=== PATIENT | female | born 1995 | race Caucasian/White ===

== ENCOUNTER 2019-10-21 19:38 | Emergency (ER) | payer MEDICAID ==
[~2019-10-21] VITALS: Ht 165.1 cm; Wt 61.0 kg
[2019-10-21] MEDS ORDERED: SODIUM CHLORIDE 0.9% 1,000 ML IV ONE ×2 (20:16→23:00)
[2019-10-21] MEDS ORDERED: LORAZEPAM 1MG TABLET PO ONE ×2 (20:30→23:00)
[2019-10-21 20:58] LABS: CHLORIDE 105 mEq/L (98-107)
[2019-10-21 21:08] LABS: HCG SCREEN NEGATIVE
[2019-10-21] MEDS ORDERED: IBUPROFEN 400MG TABLET PO ONE (23:00)
[2019-10-21] MEDS ORDERED: ACETAMINOPHEN 325MG TABLET PO ONE (23:00)
[2019-10-22 00:23] VITALS: BP 109/69
== END 2019-10-22 00:27 | disposition home or self-care (01) ==
LOC: ER 19:38
DX: F41.9 Anxiety disorder, unspecified (principal); R07.89 Other chest pain; R06.02 Shortness of breath; R11.0 Nausea; J45.909 Unspecified asthma, uncomplicated; Z87.01 Personal history of pneumonia (recurrent)
CPT/HCPCS: 36415; 71045; 80053; 84703; 85379; 93005; 96360; 99285; J7030

== ENCOUNTER 2020-07-21 23:59 | Inpatient (IN) | payer MEDICAID ==
[~2020-07-21] VITALS: Ht 165.1 cm; Wt 58.1 kg
[2020-07-22] MEDS ORDERED: METHYLPREDNISOLONE SOD SUCC 125 MG/2 ML VIAL IV STA (00:48)
[2020-07-22] MEDS ORDERED: ALBUTEROL (0.083%) 2.5MG/3ML NEB HHN STA ×2 (00:48→03:00)
[2020-07-22 01:20] LABS: BASOPHILS % 0.3 % (0.0-2.0); EOSINOPHILS % 1.1 % (0.0-5.0); HEMATOCRIT. 30.8 % (36.0-48.0); HEMOGLOBIN. 10.5 g/dL (12.0-16.0); LYMPHOCYTES % 11.3 % (20.0-50.0); MEAN CORPUSCULAR HEMOGLOBIN 29.7 pg (28.0-32.0); MEAN CORPUSCULAR VOLUME 87.1 fL (81.0-99.0); MEAN PLATELET VOLUME 8.1 fl (7.4-10.4); MONOCYTES % 4.5 % (2.0-8.0); NEUTROPHILS % 82.8 % (40.0-76.0); PLATELET 223 x1000/uL (130-400); RED BLOOD CELL COUNT 3.53 mill/uL (4.2-5.4); RED CELL DISTRIBUTION WIDTH 14.9 % (11.6-14.6)
[2020-07-22 01:28] LABS: CHLORIDE 110 mEq/L (98-107)
[2020-07-22 01:31] LABS: INR 0.9; PARTIAL THROMBOPLASTIN TIME 25.2 sec (23.4-31.0); PROTHROMBIN TIME 10.1 sec (9.6-11.0)
[2020-07-22 01:54] LABS: B-HCG QUANTITATIVE 7008 mIU/mL (<3)
[2020-07-22] MEDS ORDERED: POTASSIUM CHLORIDE 20MEQ TABLET SR PO ONE (02:15)
[2020-07-22 04:38] LABS: CLARITY URINE CLEAR (CLEAR); COLOR URINE YELLOW (YELLOW); KETONES URINE TRACE (NEGATIVE); LEUKOCYTE ESTERASE URINE TRACE (NEGATIVE); NITRITE URINE NEGATIVE (NEGATIVE); OCCULT BLOOD URINE NEGATIVE (NEGATIVE); PROTEIN URINE NEGATIVE (NEGATIVE); SPECIFIC GRAVITY URINE 1.016 (1.005-1.030)
[2020-07-22 05:03] LABS: D-DIMER 0.64 mg/L FEU (<0.50); INR 0.9; PARTIAL THROMBOPLASTIN TIME 25.6 sec (23.4-31.0); PROTHROMBIN TIME 10.2 sec (9.6-11.0)
[2020-07-22] MEDS ORDERED: CEFTRIAXONE 1 G PREMIX 50 ML IV ONE (05:45)
[2020-07-22] MEDS ORDERED: IOHEXOL-350 100 ML BOTTLE ONE (06:53)
[2020-07-22 08:00] VITALS: BP 126/80
[2020-07-22] MEDS ORDERED: SODIUM CHLORIDE 0.9% 1000ML BAG (SEPSIS BOLUS) IV ONE (08:00)
[2020-07-22 08:30] VITALS: BP 126/80
[2020-07-22] MEDS: FERROUS SULFATE 325MG TABLET PO SCH ×2 (10:08→18:59)
[2020-07-22] MEDS: ACETAMINOPHEN 325MG TABLET PO PRN ×2 (10:09→11:16)
[2020-07-22] MEDS: PRENATAL VIT/FE FUMARATE/FA TABLET PO SCH (11:10)
[2020-07-22] MEDS ORDERED: FERR325T23 PO (11:18)
[2020-07-22] MEDS ORDERED: PNV1TABL76 PO (11:19)
[2020-07-22] MEDS ORDERED: ALBU6.7H9 INH (11:20)
[2020-07-22 12:00] VITALS: BP 102/50
[2020-07-22] MEDS: IPRATROPIUM/ALBUTEROL 0.5-3(2.5)MG/3ML NEB HHN SCH ×2 (13:04→21:32)
[2020-07-22 16:00] VITALS: BP 101/50
[2020-07-22] MEDS: METHYLPREDNISOLONE SOD SUCC 125 MG/2 ML VIAL IV SCH (18:59)
[2020-07-22 20:00] VITALS: BP 96/57
[2020-07-22 23:49] VITALS: BP 101/62
[2020-07-23] MEDS: METHYLPREDNISOLONE SOD SUCC 125 MG/2 ML VIAL IV SCH ×2 (02:30→10:21)
[2020-07-23] MEDS: IPRATROPIUM/ALBUTEROL 0.5-3(2.5)MG/3ML NEB HHN SCH ×3 (03:04→13:47)
[2020-07-23 08:00] VITALS: BP 105/58
[2020-07-23] MEDS: PRENATAL VIT/FE FUMARATE/FA TABLET PO SCH (10:22)
[2020-07-23] MEDS: FERROUS SULFATE 325MG TABLET PO SCH (10:22)
[2020-07-23 12:00] VITALS: BP 104/61
[2020-07-23 16:00] VITALS: BP 120/67
[2020-07-23 16:03] VITALS: BP 120/67
== END 2020-07-23 19:00 | disposition home or self-care (01) | DRG 566 ==
LOC: ER 23:59 → 6WST 07-22 06:05 → ENRESERV 07-22 07:21
PROVIDERS: ADMIT Internal Medicine; ATTEND Internal Medicine
DX: O99.512 Diseases of the respiratory system complicating pregnancy, second trimester (principal); J96.01 Acute respiratory failure with hypoxia; R65.20 Severe sepsis without septic shock; O98.812 Other maternal infectious and parasitic diseases complicating pregnancy, second trimester; A41.9 Sepsis, unspecified organism; D64.9 Anemia, unspecified; J45.909 Unspecified asthma, uncomplicated; O99.012 Anemia complicating pregnancy, second trimester; Z3A.20 20 weeks gestation of pregnancy; Z87.01 Personal history of pneumonia (recurrent)
CPT/HCPCS: 36415; 71045; 71275; 76805; 80053; 81003; 83605; 84484; 84702; 85025; 85379; 87430; 93005; 93970; 94640; 99291; J0696; J2930; J7030; Q9967

== ENCOUNTER 2021-04-24 01:18 | Emergency (ER) | payer MEDICAID, OTHER ==
[~2021-04-24] VITALS: Ht 165.1 cm; Wt 59.0 kg
[~2021-04-24 01:18] MED LIST: ALBU6.7H9 INH; FERR325T23 PO; PNV1TABL76 PO
[2021-04-24 01:52] VITALS: BP 123/79
[2021-04-24] MEDS ORDERED: TETANUS, DIPHTHERIA, PERTUSSIS VAC/PF 0.5ML (>10YR OLD) IM ONE (02:15)
[2021-04-24] MEDS ORDERED: CEPH500C2 MT (03:51)
== END 2021-04-24 04:18 | disposition home or self-care (01) ==
LOC: ER 01:18
DX: S60.551A Superficial foreign body of right hand, initial encounter (principal); X58.XXXA Exposure to other specified factors, initial encounter; Y93.89 Activity, other specified; Y92.89 Other specified places as the place of occurrence of the external cause; Y99.8 Other external cause status
CPT/HCPCS: 73130; 90471; 90715; 99283